=== PATIENT | female | born 1945 | race Caucasian/White ===

== ENCOUNTER 2016-06-09 13:55 | Outpatient (RCR) | payer MEDICARE ==
--- OUTSIDE RECORDS SUMMARY | 2016-04-06 10:36 | XMS REPORT | Continuity of Care Document ---
Author Author [facility] Organization [facility] Address Unknown Phone Unavailable Support Name Relationship Address Phone NAHEED CHRISTIAN MD Caregiver [address] [place] [address] PALLAVI WILLAMS MD Caregiver [address] [place], [place] [id number] FERNANDO CASTREJON Next Of Kin [address] [place] [address] Insurance Providers Payer Name Policy Number Subscriber Name Relationship [employer] [id number] Jey Castrejon 17 Self / Same As Patient Blue [employer] [facility] Supp [id number] Jey Castrejon 17 Self / Same As Patient Problems No problem information available. Medications No medication information available. Social History Social History Problem Response Recorded Date/Time Recent Foreign Travel No 03/03/2016 1:26pm Hospital Discharge Instructions No hospital discharge instructions. Plan of Care Prescriptions See Medication Section Functional Status No functional status results. Allergies, Adverse Reactions, Alerts No allergy information available. Immunizations No immunization records. Vital Signs No known vital signs results. Results No known relevant diagnostic tests, laboratory data and/or discharge summary. Procedures No known history of procedures. Encounters Encounter Location Arrival/Admit Date Discharge/Depart Date Attending Provider Discharged Recurring [facility] 04/03/16 10:28am 9:18am NAHEED CHRISTIAN MD
== END 2016-07-05 | disposition home or self-care (01) ==
LOC: ONC 13:55
PROVIDERS: ATTEND Radiology Radiation Oncology
DX: Z51.0 Encounter for antineoplastic radiation therapy (principal); C50.411 Malignant neoplasm of upper-outer quadrant of right female breast; Z17.0 Estrogen receptor positive status [ER+]
CPT/HCPCS: 77290; 77300; 77332; 77334; 77336; 77412; 77417; 99213